=== PATIENT | male | born 1960 | race Caucasian/White ===

== ENCOUNTER 2019-09-29 08:55 | Day surgery (SDC) | payer MEDICARE, MEDICAID ==
[2019-09-27 12:29] LABS: BASOPHILS % (AUTO) 0.3 % (0-1); EOSINOPHILS # (AUTO) 0.1 X10'3 (0-0.9); EOSINOPHILS % (AUTO) 1.7 % (0-6); HEMOGLOBIN 14.8 g/dl (14.0-17.9); LYMPHOCYTES # (AUTO) 2.2 X10'3 (1.1-4.8); LYMPHOCYTES % (AUTO) 40.4 % (21-51); MEAN CORPUSCULAR HEMOGLOBIN 32.8 PG (27.0-31.0); MEAN CORPUSCULAR HGB CONC 34.4 g/dL (33.0-36.5); MEAN CORPUSCULAR VOLUME 95.3 FL (78-98); MEAN PLATELET VOLUME 8.4 FL (7.4-10.4); MONOCYTES # (AUTO) 0.5 X10'3 (0-0.9); NEUTROPHILS # (AUTO) 2.7 X10'3 (1.8-7.7); NEUTROPHILS % (AUTO) 48.6 % (42-75); PLATELET COUNT 200 X10'3 (140-440); RED BLOOD COUNT 4.51 X10'6 (4.70-6.10); WHITE BLOOD COUNT 5.5 X10'3 (4.5-11.0)
[2019-09-27 12:32] LABS: CHLORIDE 109 MMOL/L (99-107); GLUCOSE 62 MG/DL (70-104); SODIUM 142 MMOL/L (135-145); TOTAL CARBON DIOXIDE 27.4 MMOL/L (24-32)
[2019-09-27 12:33] LABS: ALANINE AMINOTRANSFERASE 38 U/L (12-78); ALBUMIN/GLOBULIN RATIO 1.1 (1.1-1.5); ALKALINE PHOSPHATASE 84 IU/L (46-116); ANION GAP 6 (8-16); ASPARTATE AMINO TRANSFERASE 24 U/L (10-37); BILIRUBIN,TOTAL 0.5 MG/DL (0.1-1.0); BLOOD UREA NITROGEN 25 MG/DL (7-18); BUN/CREATININE RATIO 20.7 (5.4-32.0); CALCIUM 8.8 MG/DL (8.5-10.1); CREATININE 1.21 MG/DL (0.60-1.10); TOTAL PROTEIN 7.6 G/DL (6.4-8.2); eGFR 62 ML/MIN
[2019-09-27 12:39] LABS: PARTIAL THROMBOPLASTIN TIME 27 SECONDS (22-32)
[2019-09-29] VITALS (14 sets, daily range): BP systolic 119–148; BP diastolic 61–97
[~2019-09-29] VITALS: Ht 175.3 cm; Wt 106.0 kg
[2019-09-29] MEDS ORDERED: normal saline 1,000 ML IV SCH (09:20)
[2019-09-29] MEDS ORDERED: nitroGLYCERIN 0.4mg SUBLingual tab SL PRN (09:20)
[2019-09-29] MEDS ORDERED: diphenhydrAMINE 25mg capsule PO PRN (09:20)
[2019-09-29] MEDS ORDERED: LORazepam 0.5 MG tablet PO PRN (09:20)
[2019-09-29] MEDS ORDERED: CLOM50CA2 PO (09:41)
[2019-09-29] MEDS ORDERED: ERGO500014 PO (09:41)
[2019-09-29] MEDS ORDERED: BUPR-319 PO (09:41)
[2019-09-29] MEDS ORDERED: ELVI1TAB3 PO (09:41)
[2019-09-29] MEDS ORDERED: GABA800T11 PO (09:41)
[2019-09-29] MEDS ORDERED: CYAN10007 (09:41)
[2019-09-29] MEDS ORDERED: METH-352 PO ×2 (09:41)
[2019-09-29] MEDS ORDERED: CYCL-1 PO (09:41)
[2019-09-29] MEDS ORDERED: ACYC-202 PO (09:41)
[2019-09-29] MEDS ORDERED: ASPI-611 PO (09:41)
[2019-09-29] MEDS ORDERED: PRAZ2CAP2 PO (09:41)
[2019-09-29] MEDS ORDERED: midazolam 2 mg/2 ml injection ONE ×2 (10:19→10:55)
[2019-09-29] MEDS ORDERED: fentaNYL/PF 50MCG/1 ML 2ML syringe ONE (10:20)
[2019-09-29] MEDS ORDERED: iohexol 350MG/ML 100ml bottle IV ONE (10:20)
[2019-09-29] MEDS ORDERED: LIDOcaine 1% (10mg/ml)w/preservative injection 20ml MDV ONE (10:20)
[2019-09-29] MEDS ORDERED: iohexol 350 MG/ML 50ML vial IV ONE ×2 (10:20→10:59)
[2019-09-29] MEDS ORDERED: proCHLORperazine 10 MG/2 ml inj IV PRN (12:05)
[2019-09-29] MEDS ORDERED: ondansetron/PF 4mg/2ml inj IV PRN (12:05)
[2019-09-29] MEDS ORDERED: OXAZEpam 15mg capsule PO PRN (12:05)
[2019-09-29] MEDS ORDERED: HYDROcodone/acetaminophen 10/325mg tab PO PRN (12:05)
[2019-09-29] MEDS ORDERED: HYDROcodone/acetaminophen 5mg/325mg tablet PO PRN (12:05)
[2019-09-29] MEDS ORDERED: HYDROcodone/acetaminophen 10/325mg tab PO ONE (12:20)
== END 2019-09-29 17:00 | disposition home or self-care (01) ==
LOC: SSTAY O 08:55
PROVIDERS: ATTEND Internal Medicine Cardiovascular Disease
DX: R94.39 Abnormal result of other cardiovascular function study (principal); R07.89 Other chest pain; G47.33 Obstructive sleep apnea (adult) (pediatric); I34.1 Nonrheumatic mitral (valve) prolapse; F60.9 Personality disorder, unspecified; Z87.891 Personal history of nicotine dependence; Z79.899 Other long term (current) drug therapy
CPT/HCPCS: 36415; 71046; 80053; 85025; 85610; 85730; 93458; 93567; 99152; 99153; C1760; C1769; J1644; J2001; J2250; J3010; J7030; Q0163; Q9967; A4620; A6258

== ENCOUNTER 2022-03-28 05:32 | Day surgery (SDC) | payer MEDICARE, MEDICAID ==
[2022-03-22 14:44] LABS: BASOPHILS % (AUTO) 0.7 % (0-1); EOSINOPHILS # (AUTO) 0.2 X10'3 (0-0.9); EOSINOPHILS % (AUTO) 3.2 % (0-6); LYMPHOCYTES % (AUTO) 32.6 % (21-51); MEAN CORPUSCULAR HEMOGLOBIN 32.2 PG (27.0-31.0); MEAN CORPUSCULAR HGB CONC 34.4 g/dL (33.0-36.5); MEAN CORPUSCULAR VOLUME 93.4 FL (78-98); MEAN PLATELET VOLUME 7.9 FL (7.4-10.4); MONOCYTES # (AUTO) 0.6 X10'3 (0-0.9); MONOCYTES % (AUTO) 10.4 % (2-12); NEUTROPHILS # (AUTO) 3.2 X10'3 (1.8-7.7); NEUTROPHILS % (AUTO) 53.1 % (42-75); PRE OP HEMATOCRIT 42.9 % (42.0-52.0); PRE OP HEMOGLOBIN 14.8 g/dL (14.0-17.9); PRE OP PLATELET COUNT 175 X10'3 (140-440); RED BLOOD COUNT 4.59 X10'6 (4.70-6.10); RED CELL DISTRIBUTION WIDTH 12.4 % (11.5-14.5)
[2022-03-22 14:47] LABS: ALBUMIN/GLOBULIN RATIO 1.3 (1.1-1.5); ALKALINE PHOSPHATASE 69 IU/L (46-116); BLOOD UREA NITROGEN 20 MG/DL (7-18); BUN/CREATININE RATIO 19.6 (5.4-32.0); CALCIUM 8.7 MG/DL (8.5-10.1); CHLORIDE 107 MMOL/L (99-107); CREATININE 1.02 MG/DL (0.60-1.10); PRE OP ALT 29 U/L (30-65); PRE OP ANION GAP 7 (8-16); PRE OP AST 28 U/L (10-37); PRE OP BILIRUB, TOTAL 0.5 MG/DL (0.0-1.0); PRE OP GLUCOSE 96 MG/DL (70-104); PRE OP SODIUM 141 MMOL/L (135-145); TOTAL CARBON DIOXIDE 26.6 MMOL/L (24-32); eGFR 74 ML/MIN
[2022-03-28] VITALS (10 sets, daily range): BP systolic 135–166; BP diastolic 77–109
[~2022-03-28] VITALS: Ht 172.7 cm; Wt 101.2 kg
[~2022-03-28 05:32] MED LIST: ACYC-129 PO; BACL20TA PO; BREX0.5T PO; BUPR-319 PO; BUSP5TAB3 PO; CHOL20002 PO; CYAN10007 SQ; FLO0.4C PO; LIPA1CAP18 PO; TRAZ-251 PO; [UNRECOGNIZED DRUG - CODE]; ceFAZolin inj. 2,000 MG in dextrose 5%-water 100 ML IV ONE; famotidine 20mg tablet PO ONE; ringers solution, lacted 1,000 ML IV SCH
[2022-03-28] MEDS ORDERED: LIDOcaine 1% (10mg/ml) 2ml vial ONE (06:05)
[2022-03-28] MEDS ORDERED: LIDOcaine 1% 30ml preserv. free vial ONE (06:40)
[2022-03-28] MEDS ORDERED: BUPIVAcaine 0.5% inj/PF 30 ML ONE (06:40)
[2022-03-28] MEDS ORDERED: LIDOcaine 2% (20mg/ml) 5ml vial ONE (07:33)
[2022-03-28] MEDS ORDERED: sevoflurane 250ml liquid IH ONE (07:33)
[2022-03-28] MEDS ORDERED: rocuronium 10mg/ml inj IV ONE ×2 (07:33→07:38)
[2022-03-28] MEDS ORDERED: fentaNYL/PF 50MCG/1 ML 2ML syringe ONE (07:37)
[2022-03-28] MEDS ORDERED: midazolam 1 mg/ML 2ml injection ONE (07:38)
[2022-03-28] MEDS ORDERED: propofol inj 20 ML IV ONE (07:38)
[2022-03-28] MEDS ORDERED: BUPIVAcaine 0.5% inj/PF 30 ml vial IJ ONE (08:06)
[2022-03-28] MEDS ORDERED: morphine 4 MG/ML inj SYRINge IV PRN (08:30)
[2022-03-28] MEDS ORDERED: ringers solution, lacted 1,000 ML IV SCH (08:30)
[2022-03-28] MEDS ORDERED: ondansetron/PF 4mg/2ml inj IV PRN (08:30)
[2022-03-28] MEDS ORDERED: proCHLORperazine 10 MG/2 ml inj IV PRN (08:30)
[2022-03-28] MEDS ORDERED: morphine 2 MG/ML inj. syringe IV PRN (08:30)
[2022-03-28] MEDS ORDERED: meperidine/PF 25mg/ml syringe IV PRN ×3 (08:30)
--- NOTE | 2022-03-28 09:00 | NUR ---
Received from OR via BED, accompanied by Anesthesiologist and report given by Anesthesiologist. PATIENT WAKING UP, NO S/S OF PAIN, V/S WNL, SCD ON, 20G TO LUE, ABDOMEN LAP SITE CLEAN W/ NO S/S OF COMPLICATIONS
[2022-03-28] MEDS ORDERED: dexamethasone sod phosphate 4mg/ml inj. ONE (09:01)
[2022-03-28] MEDS ORDERED: ondansetron/PF 4mg/2ml inj ONE (09:01)
[2022-03-28] MEDS ORDERED: glycopyrrolate 0.2mg/ml inj ONE (09:23)
[2022-03-28] MEDS ORDERED: neostigmine methylsulfate 1 MG/ML 10ml vial ONE (09:23)
[2022-03-28] MEDS ORDERED: HYDROcodone/acetaminophen 5mg/325mg tablet PO PRN (09:25)
--- NOTE | 2022-03-28 10:40 | NUR ---
PATIENT A^&OX4, DENIES PAIN, V/S WNL, SCD OFF, 20G TO LUE, ABDOMEN LAP SITE CLEAN W/ NO S/S OF COMPLICATIONS. I HAVE REVIEWED D/C INSTRUCTIONS WITH PATIENT and they have verbalized understanding patient d/c home with all belongings and family gave transport home.
== END 2022-03-28 10:40 | disposition home or self-care (01) ==
LOC: PAS 05:32
PROVIDERS: ATTEND Surgery
DX: K40.90 Unilateral inguinal hernia, without obstruction or gangrene, not specified as recurrent (principal); K42.9 Umbilical hernia without obstruction or gangrene; D17.6 Benign lipomatous neoplasm of spermatic cord; R59.0 Localized enlarged lymph nodes; G47.30 Sleep apnea, unspecified; F32.A Depression, unspecified; F41.9 Anxiety disorder, unspecified; E66.9 Obesity, unspecified; Z68.33 Body mass index [BMI] 33.0-33.9, adult; Z87.442 Personal history of urinary calculi; Z79.899 Other long term (current) drug therapy; Z98.890 Other specified postprocedural states; Z90.2 Acquired absence of lung [part of]
CPT/HCPCS: 36415; 38570; 49613; 49650; 80053; 82948; 85025; 93005; C1781; J0690; J1100; J2175; J2250; J2270; J2405; J2704; J2710; J3010; J3490; J7030; J7060; J7120; S0020; Z7506; Z7508; Z7512; 88305; A4215; A4618

== ENCOUNTER 2023-03-19 17:21 | Emergency (ER) | payer MEDICARE, MEDICAID ==
[~2023-03-19] VITALS: Ht 172.7 cm; Wt 92.3 kg
[~2023-03-19 17:21] MED LIST changes: -ceFAZolin inj. 2,000 MG in dextrose 5%-water 100 ML IV ONE; -famotidine 20mg tablet PO ONE; -ringers solution, lacted 1,000 ML IV SCH
[2023-03-19 17:29] VITALS: TEMP 98.1
[2023-03-19 18:01] LABS: BILIRUBIN,URINE NEGATIVE (Neg); CLARITY,URINE SLIGHTLY CLOUDY (Clear); COLOR,URINE YELLOW (Yellow); GLUCOSE, URINE NEGATIVE (Neg); KETONES,URINE NEGATIVE (Neg); LEUKOCYTE ESTERASE ,URINE NEGATIVE (Neg); NITRITES, URINE NEGATIVE (Neg); OCCULT BLOOD,URINE TRACE-INTACT (Neg); PH,URINE 5.5 (4.8-8.0); PROTEIN,URINE NEGATIVE (Neg); UROBILINOGEN,URINE 0.2 E.U/dL (0.2-1.0)
[2023-03-19 18:02] LABS: UA COLLECTION TYPE VOIDED
[2023-03-19 18:07] LABS: MUCUS STRANDS MANY /LPF (Neg)
[2023-03-19 18:08] LABS: CAL OXALATE CRYSTALS 2+ /HPF (NEGATIVE)
[2023-03-19 18:12] LABS: COARSE GRANULAR CAST 0-3 /LPF (NEGATIVE); SQUAMOUS EPITHELIAL CELL,UR FEW /LPF (FEW); TRANSITIONAL EPI CELLS,URINE FEW /HPF
[2023-03-19 18:13] LABS: RBC,URINE 0-2 /HPF (0-2)
[2023-03-19 18:14] LABS: BACTERIA,URINE FEW /HPF (Neg)
[2023-03-19 18:45] LABS: BASOPHILS % (AUTO) 0.4 % (0-1); EOSINOPHILS # (AUTO) 0.2 X10'3 (0-0.9); EOSINOPHILS % (AUTO) 2.2 % (0-6); HEMATOCRIT 45.8 % (42.0-52.0); HEMOGLOBIN 15.9 g/dl (14.0-17.9); LYMPHOCYTES # (AUTO) 1.4 X10'3 (1.1-4.8); LYMPHOCYTES % (AUTO) 16.5 % (21-51); MEAN CORPUSCULAR HEMOGLOBIN 31.9 PG (27.0-31.0); MEAN CORPUSCULAR HGB CONC 34.8 g/dL (33.0-36.5); MEAN CORPUSCULAR VOLUME 91.8 FL (78-98); MEAN PLATELET VOLUME 7.9 FL (7.4-10.4); MONOCYTES % (AUTO) 12.5 % (2-12); NEUTROPHILS # (AUTO) 5.7 X10'3 (1.8-7.7); NEUTROPHILS % (AUTO) 68.4 % (42-75); PLATELET COUNT 170 X10'3 (140-440); RED BLOOD COUNT 4.99 X10'6 (4.70-6.10); RED CELL DISTRIBUTION WIDTH 12.7 % (11.5-14.5); WHITE BLOOD COUNT 8.4 X10'3 (4.5-11.0)
[2023-03-19 19:05] LABS: ALANINE AMINOTRANSFERASE 28 U/L (12-78); ALBUMIN 3.9 G/DL (3.4-5.0); ALKALINE PHOSPHATASE 74 IU/L (46-116); ANION GAP 15 (8-16); ASPARTATE AMINO TRANSFERASE 20 U/L (10-37); BILIRUBIN,TOTAL 0.6 MG/DL (0.1-1.0); BLOOD UREA NITROGEN 22 MG/DL (7-18); BUN/CREATININE RATIO 24.4 (10.0-20.0); CALCIUM 8.9 MG/DL (8.5-10.1); CHLORIDE 103 MMOL/L (99-107); GLUCOSE 105 MG/DL (70-104); LIPASE 73 U/L (16-77); POTASSIUM 3.7 MMOL/L (3.5-5.1); SODIUM 139 MMOL/L (135-145); TOTAL CARBON DIOXIDE 21.3 MMOL/L (24-32); TOTAL PROTEIN 7.7 G/DL (6.4-8.2); eCRCL 83 ML/MIN; eGFR 86 ML/MIN
[2023-03-20] MEDS: normal saline 1000ml 1,000 ML IV ONE (02:30)
[2023-03-20] MEDS: fentaNYL/PF 50MCG/1 ML 2ML syringe IV ONE (02:30)
[2023-03-20] MEDS: ondansetron/PF 4mg/2ml inj IV ONE (02:30)
[2023-03-20] MEDS ORDERED: HYDR-3965 PO (05:22)
[2023-03-20] MEDS ORDERED: ONDA8TAB13 PO (05:22)
[2023-03-20] MEDS ORDERED: ondansetron/PF 4mg/2ml inj IV ONE (05:25)
[2023-03-20] MEDS ORDERED: morphine 4 MG/ML inj SYRINge IV ONE (05:25)
[2023-03-20 05:31] VITALS: BP 149/80; PULSE 78; RESP 18; O2SAT 98
== END 2023-03-20 05:33 | disposition home or self-care (01) ==
LOC: ER 17:22
DX: R10.11 Right upper quadrant pain (principal); R11.10 Vomiting, unspecified; Z79.899 Other long term (current) drug therapy; Z79.1 Long term (current) use of non-steroidal anti-inflammatories (NSAID)
CPT/HCPCS: 36415; 74176; 80053; 81001; 83690; 85025; 87088; 96361; 96374; 96375; 99285; J2405; J3010; J7030

== ENCOUNTER 2024-11-01 10:32 | Outpatient (CLI) | payer MEDICARE, MEDICAID ==
[~2024-11-01 10:32] MED LIST changes: -BUPR-319 PO; +BUPR-557 PO; +ONDA-245 PO
--- NOTE | 2024-11-01 12:25 | RADIOLOGY REPORT ---
MR brain HISTORY: HEADACHE, UNSPECIFIED TECHNIQUE: MR was performed with a surface coil at 1.5 T magnet. Sagittal, axial and coronal T1 and T 2-weighted images were obtained. FINDINGS: Restricted diffusion on diffusion-weighted images No areas of abnormal T2 star signal hypointensity on gradient echo images No areas of T2 signal hyperintensity on FLAIR imaging sequences No hydrocephalus or midline shift Mild cortical sulcal prominence Mucosal thickening is present in the paranasal sinuses most pronounced in the left sphenoid sinus. The orbits, sella, and cerebellopontine angles are unremarkable in appearance IMPRESSION: 1. No acute intracranial pathology 2. Paranasal sinus disease
== END 2024-11-01 23:59 | disposition home or self-care (01) ==
LOC: MRI02 10:32
PROVIDERS: ATTEND Neuromusculoskeletal Medicine & OMM
DX: J32.4 Chronic pansinusitis (principal); R51.9 Headache, unspecified
CPT/HCPCS: 70551

== ENCOUNTER 2025-02-28 17:51 | Inpatient (IN) | payer MEDICARE, MEDICAID ==
[~2025-02-28] VITALS: Ht 175.3 cm; Wt 95.9 kg
--- NOTE | 2025-02-28 18:16 | ELECTROCARDIOGRAPH REPORT ---
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 Azam Jefferson Measurements Intervals [place] Rate: 145 P: 0 CA: 0 QRS: 157 QRSD: 99 T: -11 QT: 307 QTc: 477 Interpretive Statements Atrial fibrillation Left posterior fascicular block Abnormal R-wave progression, late transition Borderline repolarization abnormality Borderline prolonged QT interval Electronically Signed On 03-02-2025 21:14:[address] Azam Jefferson Please click the below link to view image of tracing.
--- NOTE | 2025-02-28 18:24 | Physician Documentation ---
History of Present Illness ~ Chief Complaint: Stroke Alert Stated Complaint: BLURRED VISION Time Seen by MD: 18:16 HPI A 64-year-old male presented to the ED in view of disorientation and blurriness of vision that started while he was at work this morning. Patient states that he was completely disoriented, dizzy. Loss of vision on the right side that lasted for about 20-25 minutes this morning while he was at work. Patient endorses constant headache. Patient denies slurring of speech, nausea vomitings, sensory or motor deficits, weakness, gait changes. Medication Reconciliation Allergies: Coded Allergies: No Known Allergies (Unverified , 02/28/25) Scheduled Acyclovir* (Zovirax*), 0.5 TABLET PO BID, (Reported) Amox Tr/Potassium Clavulanate 875/125 MG (Augmentin 875/125 MG), 1 TAB PO BID, (Reported) Baclofen (Baclofen), 1 TAB PO TID, (Reported) Bupropion HCl (Bupropion Xl), 1 TAB PO QAM, (Reported) Buspirone HCl (Buspirone HCl), 1 TAB PO TID, (Reported) Cyanocobalamin (Vitamin B-12) (Cyanocobalamin Injection), 1 VIAL SQ Q28D, (Reported) Losartan Potassium (Losartan Potassium), 1 TAB PO BID, (Reported) Meloxicam* (Meloxicam*), 2 TAB PO DAILY, (Reported) Tamsulosin Hcl (Flomax), 0.4 MG PO QPM, (Reported) Scheduled PRN Trazodone HCl (Trazodone HCl), 2 TAB PO HS PRN for sleep, (Reported) Miscellaneous Medications Cabotegravir/Rilpivirine (Cabenuva 400 mg-600 mg ER Susp), (Reported) Montelukast Sodium (Montelukast Sodium), 1 TAB PO, (Reported) Discontinued Medications Brexpiprazole (Rexulti), 1 TAB PO HS, (Reported) Discontinued Reason: MD order Buspirone Hcl* (Buspar*), 1 TAB PO TID, (Reported) Discontinued Reason: MD order Cholecalciferol (Vitamin D3) (Vitamin D3), 1 CAP PO DAILY, (Reported) Discontinued Reason: MD order Lipase/Protease/Amylase (Creon Dr 36,000 Units Capsule), 1 CAP PO TID, (Reported) Discontinued Reason: MD order Ondansetron 8mg ODT (Ondansetron Odt), 1 TAB PO Q6H Discontinued Reason: MD order Past Medical History Past Medical History: BPH, Kidney Stones, HIV Alcohol Use: None Drug Use: none Review of Systems ROS All review of systems negative except as per HPI Physical Exam Vital Signs: Temperature: 97.8, Source: Oral, Heart Rate: 82, Respiratory Rate: 16, BP: 148/121, Pulse Oximetry: 98, Weight: 95.900 Oxygen Flow Rate: 0 General Appearance General: Patient is awake, alert, oriented x4 in no acute distress Head: Normocephalic and atraumatic. Eyes: Conjunctival normal. EOMI. PERRL. ENT: Mucous membranes moist. Neck: Supple, trachea is midline. Chest: Clear to auscultation bilaterally without rales, rhonchi, or wheezes. There is no accessory muscle use or retractions. Cardiac: RRR without murmurs, gallops, or rubs. Neuro: Cranial nerves II-XII grossly intact. No focal neuro deficits. Progress Results/Orders Results/Orders Orders - ROBERT BARNEY MD Page Hospitalist (02/28/25 19:29) Fill Out Med Reconciliation (02/28/25 19:29) Vital Signs 02/28/25 02/28/25 02/28/25 02/28/25 17:55 18:31 18:33 18:46 Temp 97.8 97.8 Pulse 82 146 137 Resp 16 17 15 B/P (MAP) 148/121 138/109 (119) 134/102 Pulse Ox 98 97 97 O2 Flow Rate 0 0 02/28/25 19:21 Temp 97.8 Pulse 143 Resp 12 B/P (MAP) 144/100 (115) Pulse Ox 98 O2 Flow Rate 0 Laboratory Tests Test 02/28/25 18:02 02/28/25 18:51 Glucometer 108 H White Blood Count 7.9 Red Blood Count 5.52 Hemoglobin 17.7 Hematocrit 51.3 Mean Corpuscular Volume 93.0 Mean Corpuscular Hemoglobin 32.0 H Mean Corpuscular Hemoglobin Concent 34.5 Red Cell Distribution Width 12.8 Platelet Count 187 Mean Platelet Volume 8.1 Neutrophils (%) (Auto) 59.3 Lymphocytes (%) (Auto) 24.6 Monocytes (%) (Auto) 11.8 Eosinophils (%) (Auto) 3.8 Basophils (%) (Auto) 0.5 Neutrophils # (Auto) 4.7 Lymphocytes # (Auto) 1.9 Monocytes # (Auto) 0.9 Eosinophils # (Auto) 0.3 Basophils # (Auto) 0.0 CBC Comment Prothrombin Time 12.6 H INR International Normalized Ratio 1.3 Activated Partial Thromboplast Time 29 Coagulation Comments Sodium Level 141 Potassium Level 4.2 Chloride Level 105 Carbon Dioxide Level 27.1 Anion Gap 9 Blood Urea Nitrogen 25 H Creatinine 1.18 H Estimated GFR/1.73 m2 62 BUN/Creatinine Ratio 21.2 H Glucose Level 83 Hemoglobin A1c 4.9 Calcium Level 8.7 Troponin I High Sensitivity 13 Albumin 3.9 Chemistry Comments EKG/XRAY/CT/US/VASC/MRI EKG : Additional Comment EKG interpreted by myself shows time of 18 15, rate 145, AFib RVR, borderline right axis deviation, nonspecific ST-T changes. Chest X-Ray : Additional Comments One view chest x-ray shows no effusions or infiltrates. Noted tortuous aorta. Borderline enlarged cardiac silhouette Medical Decision Making Additional information obtaine: old records Findings Patient presents to the emergency room with confusion out work as per HPI. Differentials include but are not limited to TIA, panic attack, cardiac arrhythmia, electrolyte disturbances therefore emergent labs and imaging indicated. We will admit patient for further evaluation. Noted new onset atrial fibrillation. Differential Dx:Considerations: Include: Arreola's Palsey, CVA, Delirium tremens, DKA, Drug overdose, Electrolyte imbalance, Encephalopathy, Hypoxemia, Hypoglycemia, Mass lesion, Respiratory failure, Subarachnoid Hemorrhage, TIA, Other Departure Admitted to Inpatient Unit: yes, to hospitalist Impression: Primary Impression: AFib RVR new onset Additional Impression: Possible TIA Condition: Guarded Referrals: NO PRIMARY CARE PROVIDER (PCP) Signature Scribe Signature: No scribe Attestation: The note accurately reflects work and decisions made by me.Robert Barney MD 03/01/25 04:30 ROBERT BARNEY MD Feb 28, 2025 18:24
--- NOTE | 2025-02-28 18:31 | RADIOLOGY REPORT ---
PROCEDURE: CT CT STROKE ALERT [facility] Study Date and Requested Time: 02/28/2025 05:56 PM History: Stroke Alert COMPARISON: MRI brain 11/01/2024 Dose: CTDI: 61.47 mGy DLP: 1159.46 mGycm TECHNIQUE: Multiplanar images obtained through the brain without intravenous contrast. FINDINGS: Mild frontoparietal predominant brain Atrophy. Mild chronic small vessel ischemic changes. No hemorrhages, masses, mass effect, midline shift, herniation or cytotoxic edema following a large vascular territory. No intra-axial or extra-axial fluid collections. No evidence of hydrocephalus. The basal cisterns are patent. The pituitary gland, sella and parasellar regions are unremarkable. The cerebellar tonsils are in normal position. Linear hypodensity over the right cerebellum. The cerebellum is unremarkable. The orbits and globes are unremarkable. Mild pansinus mucoperiosteal thickening with layering fluid within the maxillary sinuses and left sphenoid sinus. The mastoids are clear. Nonspecific Cortical irregularity of the left anterior lateral parietal calvarial outer table. IMPRESSION: No evidence of acute intracranial hemorrhage. Linear hypodensity over the right cerebellum which may represent on Area of infarct of unknown chronicity. MRI would be helpful to determine chronicity. Pansinus disease. Critical Result: Stroke Alert Findings discussed with dr. Barney at 02/28/2025 06:25 PM, and acknowledged receipt and understanding of the findings. ..
[2025-02-28 19:00] LABS: MEAN PLATELET VOLUME 8.1 FL (7.4-10.4); RED CELL DISTRIBUTION WIDTH 12.8 % (11.5-14.5)
[2025-02-28 19:07] LABS: CREATININE 1.18 MG/DL (0.60-1.10); TOTAL CARBON DIOXIDE 27.1 MMOL/L (24-32); eCRCL 64 ML/MIN; eGFR 62 ML/MIN
[2025-02-28 19:10] LABS: INR 1.3 INR
[2025-02-28 19:16] LABS: APTT 29 SECONDS (22-32)
--- NOTE | 2025-02-28 19:20 | BLUE SKY NEURO CONSULT REPORT ---
[facility] Note # Demographics Consult Type: Acute Stroke Level 1 (0-4.5 hrs) Patient Location: Emergency Room First Name: MARITA Last Name: MIRIAN Date of : 1960 Age: 64 Gender: Male Facility: [facility] Time of Initial Page (): 02/28/2025 18:15 First Contact with Site (): 02/28/2025 18:16 # HPI History: [id number] Patient is coming to the ER for blurred vision and dizziness. He was working and he had sudden onset of dizziness. H/O A-fib # Scores Time of exam and NIHSS (): 02/28/2025 18:37 Level of Consciousness 1a: [0] = Alert; keenly responsive LOC Questions 1b: [0] = Answers both questions correctly LOC Commands 1c: [0] = Performs both tasks correctly Best Gaze 2: [0] = Normal Visual 3: [0] = No visual loss Facial Palsy 4: [0] = Normal symmetrical movements Motor Arm Left 5a: [0] = No drift Motor Arm Right 5b: [0] = No drift Motor Leg Left 6a: [0] = No drift Motor Leg Right 6b: [0] = No drift Limb Ataxia 7: [0] = Absent Sensory 8: [0] = Normal Best Language 9: [0] = No aphasia Dysarthria 10: [0] = Normal Extinction and Inattention 11: [0] = No abnormality NIHSS Total: 0 # Assessment Impression: - Vertigo - Ischemic Stroke (Acute) NIHSS is 0; differential include peripheral vs central etiology. CT head showed stroke in the right cerebellum; Will need MRI brain to rule out stroke # Plan Thrombolytic/Intervention: NOT IV Thrombolysis or IA Intervention candidate Thrombolytic Exclusion (< 3 hour window): - NIHSS = 0 Intraarterial Exclusion: - no large vessel occlusion (LVO) Target Blood Pressure: - SBP < 180 - SBP > 140 Labs: - comprehensive metabolic panel - CBC - urine drug screen - ua - ESR - hemoglobin A1c - lipid panel Imaging: (urgency: routine): - MRI Brain without contrast Diagnostic Test: - echo with bubble study Therapy/Evaluation: - PT/OT evaluation - NPO until swallow evaluation -If brain MRI is negative for stroke- consider mita-hallpike maneuver Medication: - aspirin 81 mg PO PLUS clopidogrel (Plavix) 75 mg PO daily for 21 days, then monotherapy thereafter - start statin with goal of LDL < 70 PRN meclizine Other: - If patient has any neurological deterioration please call me back immediately - I have discussed my recommendations with the referring provider - neurology referral as outpatient - would not pursue stroke work-up if MRI is negative - telemetry monitoring - permissive hypertension - LDL < 70 - will need event monitor or loop recorder as outpatient if atrial fibrillation not found as inpatient Disposition: admit # Logistics Attestation of consult completion: The patient is located at: [facility]. Facility staff participated in the visit. I performed this telemedicine visit from my offsite office utilizing interactive 2 way audio and visual telecommunication technology at the request of the onsite emergency room provider. Total time spent in telemedicine encounter: I spent 15 minutes reviewing clinical data and/or imaging, obtaining history, examining the patient, communicating with the onsite care team, and in preparation of this report. # Demographics First Name: MARITA Last Name: MIRIAN Facility: [facility] Electronically signed at 02/28/2025 19:19 (Olema Time) by Tono Flores MD
[2025-02-28] MEDS ORDERED: magnesium Cl slow-release 64mg tablet PO PRN (21:00)
[2025-02-28] MEDS: PERFLUTREN PROTEIN-A MICROSPHR (Optison) 0.22 MG/ML 3ML VIAL IV ONE (21:00)
[2025-02-28] MEDS ORDERED: potassium Cl 20 mEq SR tablet PO PRN ×2 (21:00)
[2025-02-28] MEDS ORDERED: ondansetron/PF 4mg/2ml inj IV PRN (21:00)
[2025-02-28] MEDS ORDERED: magnesium hydroxide 30ml (MOM) UD suspension PO PRN (21:00)
[2025-02-28] MEDS ORDERED: magnesium sulf-water 2g/50mL 50 ML IV PRN (21:00)
[2025-02-28] MEDS ORDERED: potassium Cl 40MEQ/1/2NS 520ml 520 ML IV PRN (21:00)
[2025-02-28] MEDS ORDERED: magnesium sulf-water 4G/100mL 100 ML IV PRN (21:00)
[2025-02-28] MEDS: amiodarone 150mg/dext, iso-os 100 ML IV ONE (21:14)
--- NOTE | 2025-02-28 21:54 | HISTORY AND PHYSICAL-Residence ---
History & Physical Providers to CC Resident Creating Document: NKECHI PARKER, RES CC: TANMAY LAZO MD ~ History of Present Illness Reason for Admit\Complaint: Disoriented and dizzy with associated blurriness of vision History of Present Illness A 64-year-old male with PMH of HTN, HIV presented to the ED in view of disorientation and blurriness of vision that started while he was at work this morning. Patient states that he was completely disoriented, dizzy and clammy with loss of vision towards the right side that lasted for about 20-25 minutes this morning while he was at work. Patient endorses constant headache in the temporal region that radiates to the ear and neck with a severity of 10/10 at the greatest pain and 4/10 when it is less severe-throbbing in type that has no aggravating factors but relieves on taking Midol. Patient denies slurring of speech, nausea vomitings, sensory or motor deficits, weakness, gait changes. Patient denies palpitations, chest pain, shortness of breaths, fever, loss of consciousness. Allergies: Coded Allergies: No Known Allergies (Unverified , 02/28/25) Home Medications Home Medications Active Ondansetron Odt (Ondansetron HCl) 8 Mg Tab.rapdis 1 Tab PO Q6H 3 Days Reported Flomax (Tamsulosin HCl) 0.4 Mg Cap.sr.24h 0.4 Mg PO QPM Buspar* (Buspirone HCl) 5 Mg Tablet 1 Tab PO TID Bernabe Suarez 36,000 Units Capsule (Lipase/Protease/Amylase) 1 Each Capsule.dr 1 Cap PO TID Baclofen 20 Mg Tablet 1 Tab PO TID Trazodone HCl 50 Mg Tablet 2 Tab PO HS PRN Rexulti (Brexpiprazole) 0.5 Mg Tablet 1 Tab PO HS Vitamin D3 (Cholecalciferol (Vitamin D3)) 50 Mcg Capsule 1 Cap PO DAILY Cabenuva 400 mg-600 mg ER Susp (Cabotegravir/Rilpivirine) 4 Ml Suser.vial Cyanocobalamin Injection (Cyanocobalamin (Vitamin B-12)) 1,000 Mcg/1 Ml Vial 1 Vial SQ Q28D Zovirax* (Acyclovir) 800 Mg Tablet 0.5 Tablet PO BID Bupropion Xl (Bupropion HCl) 300 Mg Tab.er.24h 1 Tab PO QAM 30 Days Past Medical History Past Medical History HTN HIV PA Valley fever Past Surgical History Surgical History Comment 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 Charles for Cardiology Alcohol Use: None Drug Use: None ROS ROS Constitutional: No fever, chills, dizziness, weight gain or loss Eyes: No pain, erythema, discharge, blurring of vision ENT: No sore throat, epistaxis, tinnitus Cardiovascular: No Shortness of breath. Chest pressure, chest discomfort, palpitations, syncope, lower extremity edema, paroxysmal nocturnal dyspnea Respiratory: No Shortness of breath and cough present, No hemoptysis Gastrointestinal: Normal appetite. No nausea, vomiting, diarrhea, constipation, hematemesis, abdominal pain, bloating, melena or fresh blood Musculoskeletal: No chronic edema. Integumentary: No change in skin, hair, nails. No swelling, bruising, abrasions Neurologic: Headache, transient loss of vision Psychiatric: No delusions, depression, loss of interest in normal activity or change in sleep pattern, hallucinations, suicidal ideations Endocrine: No fatigue, weakness, polydipsia, polyuria, change in appetite, heat or cold intolerance, sweating, dry skin Exam Vitals: Vital Signs Date Time Temp Pulse Resp B/P (MAP) Pulse Ox O2 Delivery O2 Flow Rate FiO2 02/28/25 19:21 97.8 143 12 144/100 (115) 98 0 General: General: Alert, awake, oriented, not in acute distress HEENT: PERRLA, no icterus, pallor, lymphadenopathy, carotid bruit Respiratory system: Bilateral vesicular breath sounds heard, no adventitious breath sounds CVS: S1-S2 heard, no murmurs/rubs/gallop GI: Soft, nontender, no organomegaly, no guarding/rigidity, bowel sounds present Neuro: No focal neurological deficits present Mental status exam: alert and consciousness, orientation, memory, speech No deviation of the mouth, loss of sensations on the face - Cranial nerve test: Cranial nerves 2-12 intact - Motor system: Nutrition, Tone 3+, Power 5/5, no involuntary movements - Sensory system: Intact - Reflex testing: Biceps, triceps and knee reflexes 2+ - Cerebellar: Normal Extremities: No edema cyanosis clubbing/deformities Skin: Warm and dry Diagnostic Data Last Recorded Lab Results: [id number] Diagnostic Data: Laboratory Tests Test 02/28/25 18:51 Prothrombin Time 12.6 SECONDS (9.0-12.0) H INR International Normalized Ratio 1.3 INR Activated Partial Thromboplast Time 29 SECONDS (22-32) Coagulation Comments Advance Care Planning Advanced Care plannin - 30 Minutes (I spent 20 minutes discussing various resuscitative measures and the patient decided to be full code. And patient would like to withdraw all the life support if the patient gets to a vegetative state) Additional Plan Assessment: A 64-year-old male with past medical history of HTN and HIV presented to the ED in view of transient loss of vision, disorientation. Patient is admitted for the evaluation management of acute embolic ischemic stroke workup. Plan: Transient ischemic attack Acute embolic ischemic stroke, workup Right homonymous hemianopia NIHSS: 1 CT head: Linear hypodensity over the right cerebellum which may represent on Area of infarct of unknown chronicity Follow up with MRI head, CTA head and neck, A1c, lipid panel, echo, U tox Patient received one dose of aspirin 325 mg Continue aspirin 81 mg and Plavix 75 mg for 21 days followed by monotherapy Allow for permissive hypertension as per the plan in HTN section PT/OT eval and treat NPO until swallow eval Neuro checks Continue to monitor telemetry, consider outpatient event monitor Neurology recommendations as per above, appreciate recs New onset AFib with RVR History of PA without PTCA [id number]: 3 EKG: AFib with heart rate in 140s Started the patient on Eliquis 5 mg p.o. b.i.d. Started with the patient on amiodarone loading dose followed by amiodarone drip Consider transitioning to p.o. and further deescalation to a beta karthikeyan in view of potential side effects and young age of the patient Prerenal ALLAN probably secondary to renal tubular stasis Elevated BUN and creatinine IV fluids at 100 cc/hour Continue to monitor BMP HTN Allow for permissive hypertension with target SBP greater than 140/less than 180 mmHg Hold antihypertensives for 48 hours HIV Outpatient follow up and management Code status: Full code Diet: Heart healthy DVT prophylaxis: Eliquis Disposition: Admit to neuro, neuro check, follow up with echo and MRI brain Nkechi Parker MD Internal Medicine, PGY 2 Date of Service: Feb 28, 2025 Billing Provider: TANMAY LAZO MD, SIVA, RES Feb 28, 2025 21:54
[2025-02-28] MEDS: amiodarone/D5 360MG/200ML BAG 200 ML IV SCH (22:10)
--- NOTE | 2025-02-28 22:27 | RADIOLOGY REPORT ---
INDICATION: stroke COMPARISON: MR MRI HEAD on DOS: 11/01/24 TECHNIQUE: CTA imaging of the head and neck was performed following the uneventful administration of intravenous contrast. Sagittal and coronal reformatted images were obtained from the source data. All CT scans at this medical facility are performed using dose modulation techniques as appropriate to a performed exam including the following: Automated exposure control was utilized; adjustment of the MA and/or KV according to patient size; and use of iterative reconstruction technique. 3D MIP post-processing of the source data set was performed and reviewed by the radiologist. Radiation Dose Information: CT Dose: CTDI volume is 18.49 mGy. Dose-length product is 715.7 mGy*cm FINDINGS: The caliber and course of the distal internal carotid arteries is unremarkable. No evidence of high-grade stenosis or occlusion of the proximal branch vessels of the paimiut of [place]. The basilar artery is patent. The intracranial segments of the bilateral vertebral arteries are unremarkable in caliber. origin of the left posterior cerebral artery. No evidence of large aneurysm or arteriovenous malformation. The visualized thoracic aortic arch and proximal great vessels are unremarkable. The left common, internal and external carotid arteries are within normal limits. There is mild calcified plaque of the carotid bulb and origin of the right proximal internal carotid artery without significant stenosis. The right common, internal and external carotid arteries are within normal limits. The cervical segments of the right and left vertebral arteries are within normal limits. The right vertebral artery is diminutive. The left vertebral artery is dominant. The limited visualized lung apices are clear. The surrounding soft tissues and osseous structures are otherwise unremarkable. IMPRESSION: 1. No large vessel occlusion. No evidence of hemodynamically significant cervical stenosis or dissection.
[2025-03-01] VITALS (18 sets, daily range): BP systolic 103–169; BP diastolic 77–122; PULSE 73–118; RESP 12–22; TEMP 97.5–97.8; O2SAT 92–98
[2025-03-01] MEDS: normal saline 1000ml 1,000 ML IV SCH (02:34)
[2025-03-01] MEDS ORDERED: MONT-40 PO (04:02)
[2025-03-01] MEDS ORDERED: LOSA25TA41 PO (04:02)
[2025-03-01] MEDS ORDERED: BUSP15TA3 PO (04:02)
[2025-03-01] MEDS ORDERED: AMOX-580 PO (04:02)
[2025-03-01] MEDS ORDERED: MELO-100 PO (04:02)
[2025-03-01 05:07] LABS: LEUKOCYTE ESTERASE ,URINE NEGATIVE (Neg); NITRITES, URINE NEGATIVE (Neg); OCCULT BLOOD,URINE TRACE-INTACT (Neg)
[2025-03-01 05:11] LABS: URINE AMPHETAMINE SCREEN NEGATIVE (Neg); URINE BARBITUATE SCREEN NEGATIVE (Neg); URINE BENZODIAZEPINES SCREEN NEGATIVE (Neg); URINE CANNABINOID SCREEN NEGATIVE (Neg); URINE COCAINE SCREEN NEGATIVE (Neg); URINE METHADONE SCREEN NEGATIVE (Neg); URINE OPIATE SCREEN NEGATIVE (Neg); URINE PHENCYCLIDINE SCREEN NEGATIVE (Neg)
[2025-03-01 05:32] LABS: UA COLLECTION TYPE URINAL
[2025-03-01 05:34] LABS: MUCUS STRANDS NONE SEEN /LPF (Neg); SQUAMOUS EPITHELIAL CELL,UR FEW /LPF (FEW); URIC ACID CRYSTALS 2+ /HPF (NEGATIVE)
[2025-03-01 07:06] LABS: MEAN PLATELET VOLUME 8.4 FL (7.4-10.4); RED CELL DISTRIBUTION WIDTH 12.8 % (11.5-14.5)
[2025-03-01 07:24] LABS: CHOL/HDL RATIO 3.5 (0.00-4.99); CREATININE 1.16 MG/DL (0.60-1.10); LDL CHOLESTEROL 71 MG/DL (50-100); TOTAL CARBON DIOXIDE 28.6 MMOL/L (24-32); eCRCL 65 ML/MIN; eGFR 64 ML/MIN
[2025-03-01] MEDS: K and/or MAG REPLACEMENT MC SCH (08:00)
[2025-03-01] MEDS: docusate sod 100mg capsule PO SCH (08:00)
--- NOTE | 2025-03-01 08:46 | RADIOLOGY REPORT ---
CHEST RADIOGRAPH Indication: Stroke Alert Technique: Single frontal view of the chest was obtained COMPARISON: CHEST,TWO VIEWS on DOS: 09/27/19 FINDINGS: Lines and Tubes: None Lungs: Mild pulmonary vascular congestion. Pleura: No effusion.No pneumothorax. Cardiomediastinal contours: Cardiomegaly. Tortuosity of the descending thoracic aorta. Bones: Unremarkable IMPRESSION: Cardiomegaly and mild pulmonary vascular congestion.
[2025-03-01] MEDS: aspirin 81mg, enteric-coated 1 TAB TABLET.DR PO SCH (09:39)
[2025-03-01] MEDS: mag hydrox/Alum hydrox/simeth 30ml oral suspension PO PRN (10:48)
[2025-03-01] MEDS ORDERED: metoprolol tartrate 1mg/ml inj IV PRN (12:25)
[2025-03-01] MEDS ORDERED: aminophylline 250mg/10ml inj. IV PRN (12:25)
--- NOTE | 2025-03-01 13:12 | PROGRESS NOTE ---
Daily Progress Note Providers to CC Feels better today awaiting for MRI evaluation of the brain ~ Wheeler-Non Protocol Wheeler Indications Met/Not Met: F/C Indications Not Met Antibiotic Timeout Antibiotic Ordered?: Yes MRSA Education MRSA Education Provided to pt: Yes Subjective As above Objective Vital Signs Date Time Temp Pulse Resp B/P (MAP) Pulse Ox O2 Delivery O2 Flow Rate FiO2 03/01/25 06:27 Room Air 0.0 03/01/25 06:00 97.5 101 12 143/117 (126) 93 Vital signs, stable ,afebrile. Pulse Oximetry reflects adequate oxygenation. General: well developed, well nourished. Awake , alert, and oriented x4, resting comfortably in the bed, in no acute distress . Skin: Warm, dry, no pallor, no rash or petechiae. HEENT: Atraumatic, normocephalic, EOMI, anicteric sclera B; pink conjunctiva; PERRLA, normal oropharynx, moist oral and nasal mucosa. Tympanic membrane , nose , throat clear. Neck: Trachea midline. Supple, full range of motion, no JVD, bruit , hepatojugular reflex , lymphadenopathy or masses, or other lesions Cardiac: Regular rhythm, regular rate no murmurs, rubs, or gallops. Normal S1 and S2, no S3 noticed. PMI is normal. Respiratory: Equal breath sounds bilaterally, no tachypnea; lungs clear to auscultation bilaterally, no wheezing ,rub or rales, or crackles. Chest wall is symmetric and without deformity. No signs of trauma. Chest wall is nontender. No signs of respiratory distress. Resonance is normal upon percussion bilaterally. Gastrointestinal: Abdomen symmetric, non-distended, soft, non-tender, normal bowel sounds x4 quadrant, normoactive, no hepatosplenomegaly , no masses , no bruit, no flank pain bilaterally. No voluntary guarding, rebound, or rigidity. No tenderness to percussion. No pulsatile masses. Equal femoral pulses. No Reynolds's sign or McBurney point tenderness. Back; no CVA tenderness bilaterally, no deformities. Neck and back are without deformity as well. No tenderness noted on palpation of the spinous processes. Spinous processes are midline. Cervical, thoracic, and lumbar paraspinal muscles are not tender and are without spasm. : normal external genitalia, without lesions, swelling, masses or tenderness. Musculoskeletal: Extremities, normal range of motion, non-tender, muscle strength 5/5 x 4. Negative Homans signs bilaterally on lower extremity. Distal pulses full symmetrical, no clubbing, cyanosis , edema. Neurological: Speech is clear, alert, and oriented x 4. No motor or sensory deficit, deep tendon reflexes normal, cerebellar intact. Cranial nerves II-XII intact. Psych: Alert and or appropriate, normal affect. Vascular: Good distal pulses, which are equal x4; capillary refill less than 2 seconds. Lymphatic, no lymphadenopathy. Result Diagram: 03/01/2562703/01/25627 Coagulation Studies Laboratory Tests Test 02/28/25 18:51 Prothrombin Time 12.6 SECONDS (9.0-12.0) H INR International Normalized Ratio 1.3 INR Activated Partial Thromboplast Time 29 SECONDS (22-32) Coagulation Comments Problem\Assessment\Plan Assessment: A 64-year-old male with past medical history of HTN and HIV presented to the ED in view of transient loss of vision, disorientation. Patient is admitted for the evaluation management of acute embolic ischemic stroke workup. 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 Right homonymous hemianopia NIHSS: 1 CT head: Linear hypodensity over the right cerebellum which may represent on Area of infarct of unknown chronicity Follow up with MRI head, CTA head and neck, A1c, lipid panel, echo, U tox Patient received one dose of aspirin 325 mg Continue aspirin 81 mg and Plavix 75 mg for 21 days followed by monotherapy Allow for permissive hypertension as per the plan in HTN section PT/OT eval and treat NPO until swallow eval Neuro checks Continue to monitor telemetry, consider outpatient event monitor Neurology recommendations as per above, appreciate recs New onset AFib with RVR History of [place] without PTCA [id number]: 3 EKG: AFib with heart rate in 140s Started the patient on Eliquis 5 mg p.o. b.i.d. Started with the patient on amiodarone loading dose followed by amiodarone drip Consider transitioning to p.o. and further deescalation to a beta karthikeyan in view of potential side effects and young age of the patient Prerenal ALLAN probably secondary to renal tubular stasis Elevated BUN and creatinine IV fluids at 100 cc/hour Continue to monitor BMP HTN Allow for permissive hypertension with target SBP greater than 140/less than 180 mmHg Hold antihypertensives for 48 hours HIV Outpatient follow up and management Code status: Full code Diet: Heart healthy DVT prophylaxis: Eliquis Sepsis Screening Reassessment Date: Mar 01, 2025 Date of Service: Mar 01, 2025 Billing Provider: PARVIN CHAMBERS MD Common Visit Codes: 54653-COPODPPIWE INP/OBS CARE(HIGH) PARVIN CHAMBERS MD Mar 01, 2025 13:12
--- NOTE | 2025-03-01 16:28 | RADIOLOGY REPORT ---
CLINICAL HISTORY: CVA TECHNIQUE: Routine multiplanar imaging of the brain was performed without gadolinium contrast. COMPARISON: MR MRI HEAD on DOS: 11/01/24 FINDINGS: There is a small subtle acute right medial occipital cortical infarct. There are no significant chronic small vessel ischemic foci. There is a small old right cerebellar infarct. There is no evidence for mass, mass effect, or extra-axial fluid collection. There is no hydrocephalus or midline shift. The cerebral sulci and subarachnoid cisterns are not effaced. The imaged paranasal sinuses are clear. The globes are intact. The midline structures, including the corpus callosum, are unremarkable. The intracranial flow voids are maintained. IMPRESSION: Small acute subtle right medial occipital cortical infarct. Small old right cerebellar infarct.
[2025-03-01] MEDS: HYDROcodone/acetaminophen 5mg/325mg tablet PO PRN (21:29)
[2025-03-02] VITALS (12 sets, daily range): BP systolic 121–147; BP diastolic 77–99; PULSE 75–115; RESP 17–20; TEMP 97.5–98; O2SAT 95–98
[2025-03-02 07:08] LABS: MEAN PLATELET VOLUME 8.6 FL (7.4-10.4); RED CELL DISTRIBUTION WIDTH 12.8 % (11.5-14.5)
[2025-03-02 07:16] LABS: CREATININE 0.86 MG/DL (0.60-1.10); TOTAL CARBON DIOXIDE 26.3 MMOL/L (24-32); eCRCL 88 ML/MIN; eGFR 90 ML/MIN
[2025-03-02] MEDS: regadenoson 0.4mg/5ml syringe IV PRN (09:28)
--- NOTE | 2025-03-02 10:40 | RADIOLOGY REPORT ---
HISTORY: EF 27 TECHNIQUE: At peak stress, 33.8 mCi of sestamibi was administered intravenously. Soon thereafter, gated SPECT imaging of the heart was performed with the patient in the supine position. At rest, 8.3 mCi of sestamibi was administered intravenously. Soon thereafter, gated SPECT imaging of the heart was performed with the patient in the supine position. FINDINGS: There is a tiny perfusion defect at the apex which is partially reversible on rest images. There is global hypokinesis. Calculated LVEF is 32 %. No segmental wall motion abnormality. IMPRESSION: Tiny perfusion defect at the cardiac apex which is partially reversible on rest images. Ejection fraction = 32%.
[2025-03-02] MEDS ORDERED: EMPA10TA PO (14:55)
[2025-03-02] MEDS ORDERED: SPIR25TA5 PO (14:55)
[2025-03-02] MEDS ORDERED: METO-539 PO (14:55)
[2025-03-02] MEDS ORDERED: CLOP-32 PO (14:55)
[2025-03-02] MEDS ORDERED: ASPI-1265 PO (14:55)
--- NOTE | 2025-03-02 17:33 | CARDIOLOGY REPORT ---
APPROVED REPORT EXAM: Comprehensive 2D, Doppler, and color-flow Echocardiogram. 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 3.87 cm IVC 26.96 mm FS (%) 21.6 % SV 54.0 ml CO 1.5 L/min M-Mode Dimensions Left Atrium(MM) 6.14 (2.5-4.0cm) IVSd 1.41 (0.7-1.1cm) LVDd 4.93 (4.0-5.6cm) Aortic Root 3.02 (2.2-3.7cm) PWd 2.01 (0.7-1.1cm) Aortic Cusp Exc 2.57 (1.5-2.0cm) IVSs 1.21 cm MV EPSS 1.3 (<0.5cm) LVDs 4.68 (2.0-3.8cm) FS (%) 5 % PWs 2.16 cm ESV(Teich) 101.4 ml LVEF(%) 12 (>50%) Biplane 2D LA Volumes LA ESV Index 41.68 mL/m2 Aortic Valve AoV Peak Rigoberto. 113.4 cm/s AoV VTI 16.5 cm AO Peak GR. 5.1 mmHg AO Mean GR. 3 mmHg LVOT VTI 11.72 cm LVOT Peak Rigoberto. 77.4 cm/s SHARMAINE(VTI)/BSA 2.91 cm2/m2 SHARMAINE (VTI) 2.91 cm2 AV DI 0.71 % Mitral Valve MV Peak Gr. 7 mmHg MV PHT 32 ms MVA (PHT) 6.88 cm2 MV VMax 132.9 cm/s Tricuspid Valve TR P. Velocity 298 cm/s RAP ESTIMATE 10 mmHg TR Peak Gr. 36 mmHg RVSP 46 mmHg LEFT VENTRICLE Normal LV size and severely reduced systolic function. Moderate concentric hypertrophy. Multisegmental wall motion abnormalities. LVEF is 25-30%. RIGHT VENTRICLE RV is moderately dilated with at least mildly reduced function. RVSP is estimated 46 mmHg. ATRIA Severe biatrial dilation. AORTIC VALVE Trileaflet AV appears mildly sclerotic without stenosis. Trace insufficiency by color and spectral flow Doppler. MITRAL VALVE Mild MV annular calcification without stenosis. Moderate eccentric regurgitation by color and spectral flow Doppler. TRICUSPID VALVE TV appears structurally normal with mild regurgitation by color and spectral flow Doppler. PULMONIC VALVE Normal PV without stenosis, physiologic insufficiency by color and spectral flow Doppler. GREAT VESSELS The aortic root is normal in size. Ascending aorta is dilated at 3.87 cm. PERICARDIUM Normal pericardium. No effusion. Other Information Study Quality: Adequate Conclusion Normal LV size and severely reduced systolic function. Moderate concentric hypertrophy. Multisegmental wall motion abnormalities. LVEF is 25-30%. RV is moderately dilated with at least mildly reduced function. RVSP is estimated 46 mmHg. Severe biatrial dilation. Trileaflet AV appears mildly sclerotic without stenosis. Trace insufficiency by color and spectral flow Doppler. Mild MV annular calcification without stenosis. Moderate eccentric regurgitation by color and spectral flow Doppler. TV appears structurally normal with mild regurgitation by color and spectral flow Doppler. The aortic root is normal in size. Ascending aorta is dilated at 3.87 cm. Normal pericardium. No effusion.
--- NOTE | 2025-03-02 19:56 | DISCHARGE SUMMARY ---
Discharge Summary Providers to CC Patient is feeling Better today asking to be discharged home ~ Discharge Summary Assessment HTN HIV [place] Old CVA Subacute CVA Atrial fibrillation Chronic kidney disease Admission Diagnosis: Acute CVA work up Admission Diagnosis Comment: HTN HIV [place] fever Old CVA Subacute CVA Atrial fibrillation Chronic kidney disease Hospital Course DATE OF ADMISSION: February 28, 2025 DATE OF DISCHARGE: March 02, 2025 Discharge Diagnosis\Comment: HTN HIV [place] fever Old CVA Subacute CVA Atrial fibrillation Chronic kidney disease Operations\Procedures: Non Consultants: Virtual neurologist Complications: Non Condition on DC: Stable Discharge Summary: A 64-year-old male with PMH of HTN, HIV presented to the ED in view of diso rientation and blurriness of vision that started while he was at work this morning. Patient states that he was completely disoriented, dizzy and clammy with loss of vision towards the right side that lasted for about 20-25 minutes this morning while he was at work. Patient endorses constant headache in the temporal region that radiates to the ear and neck with a severity of 10/10 at the greatest pain and 4/10 when it is less severe-throbbing in type that has no aggravating factors but relieves on taking Midol. Patient denies slurring of speech, nausea vomitings, sensory or motor deficits, weakness, gait changes. Patient denies palpitations, chest pain, shortness of breaths, fever, loss of consciousness. She patient was extensively evaluated treated today patient's feel better asking to be discharged home, he will be discharged in stable condition medication reconciled follow-up PCP Neurology in the morning, today on physical exam, Vital signs, stable ,afebrile. Pulse Oximetry reflects adequate oxygenation. General: well developed, well nourished. Awake , alert, and oriented x4, resting comfortably in the bed, in no acute distress . Skin: Warm, dry, no pallor, no rash or petechiae. HEENT: Atraumatic, normocephalic, EOMI, anicteric sclera B; pink conjunctiva; PERRLA, normal oropharynx, moist oral and nasal mucosa. Tympanic membrane , nose , throat clear. Neck: Trachea midline. Supple, full range of motion, no JVD, bruit , hepatojugular reflex , lymphadenopathy or masses, or other lesions Cardiac: Regular rhythm, regular rate no murmurs, rubs, or gallops. Normal S1 and S2, no S3 noticed. PMI is normal. Respiratory: Equal breath sounds bilaterally, no tachypnea; lungs clear to auscultation bilaterally, no wheezing ,rub or rales, or crackles. Chest wall is symmetric and without deformity. No signs of trauma. Chest wall is nontender. No signs of respiratory distress. Resonance is normal upon percussion bilaterally. Gastrointestinal: Abdomen symmetric, non-distended, soft, non-tender, normal bowel sounds x4 quadrant, normoactive, no hepatosplenomegaly , no masses , no bruit, no flank pain bilaterally. No voluntary guarding, rebound, or rigidity. No tenderness to percussion. No pulsatile masses. Equal femoral pulses. No Reynolds's sign or McBurney point tenderness. Back; no CVA tenderness bilaterally, no deformities. Neck and back are without deformity as well. No tenderness noted on palpation of the spinous processes. Spinous processes are midline. Cervical, thoracic, and lumbar paraspinal muscles are not tender and are without spasm. : normal external genitalia, without lesions, swelling, masses or tenderness. Musculoskeletal: Extremities, normal range of motion, non-tender, muscle strength 5/5 x 4. Negative Homans signs bilaterally on lower extremity. Distal pulses full symmetrical, no clubbing, cyanosis , edema. Neurological: Speech is clear, alert, and oriented x 4. No motor or sensory deficit, deep tendon reflexes normal, cerebellar intact. Cranial nerves II-XII intact. Psych: Alert and or appropriate, normal affect. Vascular: Good distal pulses, which are equal x4; capillary refill less than 2 seconds. Lymphatic, no lymphadenopathy. *Problems/Diagnosis: (1) CVA, old, homonymous hemianopsia (2) CVA (cerebral vascular accident) (3) CVA, old, monoplegia upper limb Total Time Spent on D/C: > 30 Minutes Date of Service: Mar 02, 2025 Billing Provider: PARVIN CHAMBERS MD Common Visit Codes: 36067-YNS/OBS DISCH DAY >30min PARVIN CHAMBERS MD Mar 02, 2025 19:55
== END 2025-03-02 15:30 | disposition home or self-care (01) | DRG 64 ==
LOC: ER 17:52 → ED HOLD 19:42 → PCU 3S 03-01 01:46
PROVIDERS: ADMIT Internal Medicine; ATTEND Family Medicine
PROC: B3251ZZ Computerized Tomography (CT Scan) of Bilateral Common Carotid Arteries using Low Osmolar Contrast (ICD-10-PCS; principal; 2025-02-28)
PROC: B32G1ZZ Computerized Tomography (CT Scan) of Bilateral Vertebral Arteries using Low Osmolar Contrast (ICD-10-PCS; 2025-02-28)
PROC: B32R1ZZ Computerized Tomography (CT Scan) of Intracranial Arteries using Low Osmolar Contrast (ICD-10-PCS; 2025-02-28)
PROC: B3281ZZ Computerized Tomography (CT Scan) of Bilateral Internal Carotid Arteries using Low Osmolar Contrast (ICD-10-PCS; 2025-02-28)
PROC: 4A02XM4 Measurement of Cardiac Total Activity, External Approach (ICD-10-PCS; 2025-03-02)
PROC: 3E033HZ Introduction of Radioactive Substance into Peripheral Vein, Percutaneous Approach (ICD-10-PCS; 2025-03-02)
DX: I63.9 Cerebral infarction, unspecified (principal); I50.23 Acute on chronic systolic (congestive) heart failure; I13.0 Hypertensive heart and chronic kidney disease with heart failure and stage 1 through stage 4 chronic kidney disease, or unspecified chronic kidney disease; N17.9 Acute kidney failure, unspecified; N18.9 Chronic kidney disease, unspecified; H53.461 Homonymous bilateral field defects, right side; I48.91 Unspecified atrial fibrillation; N40.0 Benign prostatic hyperplasia without lower urinary tract symptoms; Z79.899 Other long term (current) drug therapy; Z86.73 Personal history of transient ischemic attack (TIA), and cerebral infarction without residual deficits
CPT/HCPCS: 36415; 70450; 70496; 70498; 70551; 71045; 78452; 80048; 80061; 80305; 81001; 82948; 83036; 83605; 83735; 84484; 85025; 85610; 85730; 87040; 87081; 93005; 93017; 93306; 94760; 97110; 97116; 97162; 99285; A9500; G0378; J0282; J2785; J7030; Q9967